=== PATIENT | female | born 1990 | race Caucasian/White ===

== ENCOUNTER 2017-03-12 11:05 | Emergency (ER) | payer MEDICAID ==
[~2017-03-12] VITALS: Ht 170.2 cm; Wt 96.7 kg
[~2017-03-12 11:05] MED LIST: OXYC1TAB7 PO; OXYC5CAP4 PO; PROM25TA10 PO
[2017-03-12] MEDS ORDERED: SODIUM CHLORIDE 0.9% 1,000ML IVBOLUS ONE (12:00)
[2017-03-12] MEDS ORDERED: SODIUM CHLORIDE FLUSH 10ML SYR IVF ONE (12:00)
[2017-03-12] MEDS ORDERED: DICYCLOMINE 10 MG/ML, 2ML IM ONE (12:00)
[2017-03-12] MEDS ORDERED: ONDANSETRON 2MG/ML, 2ML IVPush ONE (12:00)
[2017-03-12] MEDS ORDERED: ONDANSETRON 2MG/ML, 2ML ONE (12:05)
[2017-03-12 12:38] LABS: ASPARTATE AMINO TRANSFERASE 44 U/L (15-37); BLOOD UREA NITROGEN 10 mg/dL (7-18)
[2017-03-12 14:42] VITALS: BP 118/63
== END 2017-03-12 14:45 | disposition home or self-care (01) ==
LOC: ED 12:46
DX: N30.00 Acute cystitis without hematuria (principal); K21.9 Gastro-esophageal reflux disease without esophagitis; Z90.49 Acquired absence of other specified parts of digestive tract
CPT/HCPCS: 36415; 80053; 81001; 84703; 85025; 86704; 86706; 86708; 86803; 87086; 87340; 96361; 96372; 96374; 99284; J0500; J2405; J7030

== ENCOUNTER 2017-06-16 12:19 | Emergency (ER) | payer MEDICAID ==
[~2017-06-16] VITALS: Ht 165.1 cm; Wt 94.0 kg
[2017-06-16 12:40] VITALS: BP 122/84
[2017-06-16] MEDS ORDERED: KETOROLAC 30 MG/1 ML IM ONE (13:00)
[2017-06-16] MEDS ORDERED: DEXAMETHASONE 4 MG TABLET ONE (13:30)
[2017-06-16] MEDS ORDERED: KETOROLAC 30 MG/1 ML ONE (13:30)
[2017-06-16] MEDS ORDERED: DEXAMETHASONE 4 MG TABLET PO ONE (14:00)
== END 2017-06-16 13:56 | disposition home or self-care (01) ==
LOC: ED 13:50
DX: J02.0 Streptococcal pharyngitis (principal); K21.9 Gastro-esophageal reflux disease without esophagitis; Z90.49 Acquired absence of other specified parts of digestive tract
CPT/HCPCS: 96372; 99283; J1885

== ENCOUNTER 2017-07-13 15:17 | Emergency (ER) | payer MEDICAID ==
[~2017-07-13] VITALS: Ht 162.6 cm; Wt 94.3 kg
[~2017-07-13 15:17] MED LIST changes: +OXYC5CAP2 PO; -OXYC5CAP4 PO
[2017-07-13] MEDS ORDERED: SODIUM CHLORIDE FLUSH 10ML SYR IVF ONE (16:00)
[2017-07-13] MEDS ORDERED: SODIUM CHLORIDE 0.9% 1,000ML IVBOLUS ONE (16:00)
[2017-07-13] MEDS ORDERED: ONDANSETRON 2MG/ML, 2ML IVPush ONE ×2 (16:00→18:30)
[2017-07-13] MEDS ORDERED: ONDANSETRON 2MG/ML, 2ML ONE ×2 (16:04→18:08)
[2017-07-13] MEDS ORDERED: MORPHINE SULFATE 4 MG/ML, 1ML ONE ×2 (16:04→18:08)
[2017-07-13] MEDS: MORPHINE SULFATE 4 MG/ML, 1ML IVPush PRN ×2 (16:15→18:12)
[2017-07-13 16:29] LABS: HEMATOCRIT 44.2 % (34.6-47.8); WHITE BLOOD COUNT 11.9 x10^3/uL (3.4-10)
[2017-07-13 16:40] LABS: ASPARTATE AMINO TRANSFERASE 12 U/L (15-37); BLOOD UREA NITROGEN 8 mg/dL (7-18)
[2017-07-13] MEDS ORDERED: MORPHINE SULFATE 4 MG/ML, 1ML IVPush PRN (18:30)
[2017-07-13 18:43] VITALS: BP 128/61
[2017-07-13] MEDS ORDERED: OMNIPAQUE 350 MG/ML, 100ML BOTTLE ONE (20:42)
== END 2017-07-13 18:46 | disposition home or self-care (01) ==
LOC: ED 17:23
DX: R19.7 Diarrhea, unspecified (principal); R10.31 Right lower quadrant pain; R11.0 Nausea; K21.9 Gastro-esophageal reflux disease without esophagitis; Z90.49 Acquired absence of other specified parts of digestive tract
CPT/HCPCS: 36415; 74177; 80053; 81001; 83605; 85025; 87086; 87324; 89055; 96361; 96374; 96375; 96376; 99285; J2405; J7030; Q9967

== ENCOUNTER 2019-03-02 20:17 | Emergency (ER) | payer MEDICAID ==
[~2019-03-02] VITALS: Ht 165.1 cm; Wt 94.8 kg
[2019-03-02 20:54] LABS: BASOPHILS # (AUTO) 0.04 x10^3/uL (0-0.1); BASOPHILS % (AUTO) 1 % (0-1); EOSINOPHILS # (AUTO) 0.16 x10^3/uL (0-0.4); EOSINOPHILS % (AUTO) 2 % (1-7); LYMPHOCYTES % (AUTO) 29 % (22-44); MD NO; MEAN CORPUSCULAR HEMOGLOBIN 29.3 pg (27.0-34.8); MEAN CORPUSCULAR HGB CONC 34.3 g/dL (32.4-35.8); MEAN CORPUSCULAR VOLUME 85.3 fL (80-100); MEAN PLATELET VOLUME 7.9 fL (7.4-10.4); MONOCYTES # (AUTO) 0.68 x10^3/uL (0.2-0.8); MONOCYTES % (AUTO) 8 % (2-9); NEUTROPHILS % (AUTO) 60 % (42-75); PLATELET COUNT 292 x10^3/uL (130-400); RED BLOOD COUNT 4.95 x10^6/uL (3.82-5.3); RED CELL DISTRIBUTION WIDTH 13.1 % (9.6-15.2)
[2019-03-02 21:03] LABS: ALANINE AMINOTRANSFERASE 60 U/L (12-78); ALBUMIN 3.8 g/dL (3.4-5.0); ANION GAP 7 mmol/L (5-15); CALCIUM 8.9 mg/dL (8.5-10.1); CHLORIDE 106 mmol/L (98-107); CREATININE 0.72 mg/dL (0.55-1.02)
[2019-03-02 21:08] LABS: ALKALINE PHOSPHATASE 72 U/L (45-117); BILIRUBIN,TOTAL 0.2 mg/dL (0.2-1.0); TOTAL PROTEIN 7.6 g/dL (6.4-8.2)
[2019-03-02 21:33] LABS: CULTURE INDICATED? YES; MICROSCOPIC AUTO
[2019-03-02 22:07] LABS: CLOSTRIDIUM DIFFICILE ANTIGEN NEGATIVE; CLOSTRIDIUM DIFFICILE TOXIN NEGATIVE (Negative)
--- NOTE | 2019-03-02 22:17 | NUR ---
PT BACK TO ROOM
[2019-03-02] MEDS ORDERED: DICYCLOMINE 10 MG/ML, 2ML ONE (22:51)
[2019-03-02] MEDS ORDERED: ONDANSETRON ODT 4 MG ONE (22:51)
[2019-03-02] MEDS ORDERED: PROMETHAZINE 25 MG/ML, 1ML ONE (22:51)
[2019-03-02] MEDS ORDERED: DICYCLOMINE 10 MG/ML, 2ML IM ONE (23:00)
[2019-03-02] MEDS ORDERED: PROMETHAZINE 25 MG/ML, 1ML IM ONE (23:00)
[2019-03-02] MEDS ORDERED: ONDANSETRON ODT 4 MG PO ONE (23:00)
[2019-03-02 23:37] VITALS: BP 114/72
== END 2019-03-02 23:38 | disposition home or self-care (01) ==
LOC: ED 23:27
DX: K52.9 Noninfective gastroenteritis and colitis, unspecified (principal); N30.00 Acute cystitis without hematuria; K21.9 Gastro-esophageal reflux disease without esophagitis; Z90.49 Acquired absence of other specified parts of digestive tract
CPT/HCPCS: 36415; 80053; 81001; 84703; 85025; 87086; 87324; 89055; 96372; 99283; J0500; J2550; Q0162

== ENCOUNTER 2021-07-03 19:54 | Emergency (ER) | payer MEDICAID ==
[~2021-07-03] VITALS: Ht 165.1 cm; Wt 76.0 kg
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
[2021-07-03 20:52] LABS: MICROSCOPIC INDICATED
[2021-07-03 21:16] LABS: BASOPHILS % (AUTO) 1 % (0-1); EOSINOPHILS % (AUTO) 1 % (1-7); LYMPHOCYTES % (AUTO) 31 % (22-44); MEAN CORPUSCULAR HGB CONC 33.5 g/dL (32.4-35.8); MEAN PLATELET VOLUME 9.1 fL (7.4-10.4); MONOCYTES % (AUTO) 5 % (2-9); NEUTROPHILS % (AUTO) 62 % (42-75); PLATELET COUNT 278 x10^3/uL (130-400); RED BLOOD COUNT 4.59 x10^6/uL (3.82-5.3); RED CELL DISTRIBUTION WIDTH 14.4 % (9.6-15.2)
[2021-07-03 21:20] LABS: ALBUMIN 3.3 g/dL (3.4-5.0); ANION GAP 5 mmol/L (5-15); CALCIUM 8.9 mg/dL (8.5-10.1); CHLORIDE 109 mmol/L (98-107)
[2021-07-03 21:25] LABS: CREATININE 0.63 mg/dL (0.55-1.02)
--- NOTE | 2021-07-03 22:08 | NUR ---
PT SLEEPING ON CART. RR EVEN NON LABORED. WILL CTM. PENDING U/S READ
[2021-07-03 23:00] VITALS: BP 110/65
== END 2021-07-03 23:02 | disposition home or self-care (01) ==
LOC: ED 21:23
DX: N30.00 Acute cystitis without hematuria (principal); N89.8 Other specified noninflammatory disorders of vagina; Z90.49 Acquired absence of other specified parts of digestive tract
CPT/HCPCS: 36415; 76830; 80048; 81001; 82040; 84703; 85025; 87086; 87491; 87591; 99284